=== PATIENT | female | born 1970 | race Caucasian/White ===

== ENCOUNTER 2023-05-31 14:16 | Emergency (ER) | payer MEDICAID ==
[~2023-05-31] VITALS: Ht 175.3 cm; Wt 99.8 kg
[2023-05-31 14:17] VITALS: BP_SYST 124; PULSE 82; RESP 18; TEMP 97.2; O2SAT 97
[2023-05-31] MEDS: IBUPROFEN 800 MG TABLET PO ONE (14:53)
[2023-05-31] MEDS: MORPHINE 4 MG INJ. 4 MG/ML VIAL IM ONE (16:36)
[2023-05-31] MEDS: HYDROcodone/ACETAMIN 10-325 MG TAB PO ONE (16:37)
[2023-05-31] MEDS: ONDANSETRON 4 MG ODT TAB PO ONE (16:37)
[2023-05-31] MEDS ORDERED: HYDR-3927 PO (17:43)
[2023-05-31] MEDS ORDERED: IBUP-1971 PO (17:43)
[2023-05-31 17:55] VITALS: BP_SYST 124; PULSE 82; RESP 18; TEMP 97.2; O2SAT 97
== END 2023-05-31 18:07 | disposition home or self-care (01) ==
LOC: SED 14:16
DX: S82.142A Displaced bicondylar fracture of left tibia, initial encounter for closed fracture (principal); Z79.899 Other long term (current) drug therapy; W01.0XXA Fall on same level from slipping, tripping and stumbling without subsequent striking against object, initial encounter; Y93.89 Activity, other specified; Y92.89 Other specified places as the place of occurrence of the external cause; Y99.8 Other external cause status
CPT/HCPCS: 99284; 29505; 73564; 73610; Q0162; J2270